=== PATIENT | male | born 1965 | race Caucasian/White ===

== ENCOUNTER 2021-04-24 14:41 | Outpatient (CLI) | payer OTHER ==
--- NOTE | 2021-04-24 16:27 | MRI Report ---
PROCEDURE: Shoulder RT W/O INDICATIONS: PAIN IN RIGHT SHOULDER TECHNIQUE: Noncontrast oblique coronal T2 fast spin echo with fat saturation, oblique sagittal T1 spin echo and T2 fast spin echo with fat saturation, axial T1 spin echo and T2 fast spin echo with fat saturation t hrough the shoulder. COMPARISON: None. FINDINGS: Image quality: Excellent. Rotator cuff: There is full-thickness tearing of the supraspinatus tendon and the anterior fibers of the infraspinatus tendon measuring 1.7 cm in anteroposterior dimension with proximal tendon retracti on measuring approximately 2.5 cm. There is tendinosis of the posterior infraspinatus tendon. The ter es minor tendon is intact. There is tendinosis and low-grade intrasubstance tearing of the subscapula ris tendon at the superior insertion. There is grade 2 fatty infiltration of the teres minor muscle, which may be related to chronic denervation changes. No mass is seen along the course of the axillary nerve. The remaining rotator cuff muscles are normal in bulk. Bones and bursae: No acute bone marrow contusion or fracture. Traction cystic changes and edema are seen at the posterosuperior humeral head and greater tuberosity near the rotator cuff tendon insertio ns. Small traction cystic changes are also seen at the lesser tuberosity. Moderate degenerative sandoval es are seen at the acromioclavicular joint with subchondral cystic changes. A subacromial/subdeltoid bursal effusion communicates with the glenohumeral joint space. Capsule and soft tissues: No displaced labral tear is seen. There is mild tendinosis of the intra-ar ticular portion of the biceps long head tendon. Partial effacement of the normal fat in the rotator i nterval is seen. There is no significant thickening of the inferior glenohumeral ligament. IMPRESSION: 1. Full-thickness tearing of the supraspinatus tendon and the anterior fibers of the infraspinatus t endon measuring 1.7 cm in anteroposterior dimension with proximal tendon retraction measuring 2.5 cm. Edema in the adjacent portion of the greater tuberosity may be reactive or related to traction. 2. Low-grade intrasubstance tearing of the subscapularis tendon at the superior insertion superimpos ed on chronic tendinosis. 3. Grade 2 fatty infiltration of the teres minor muscle is nonspecific, but may be related to chroni c denervation changes. No mass is seen along the course of the axillary nerve. 4. Mild tendinosis of the intra-articular biceps long head tendon. 5. Moderate acromioclavicular joint osteoarthrosis. Reviewed by: Rohit Pulido MD on 04/24/2021 4:26 PM PDT Approved by: Rohit Pulido MD on 04/24/2021 4:26 PM PDT Station ID: [id number]
== END 2021-04-24 14:42 | disposition home or self-care (01) ==
LOC: DI 14:41
PROVIDERS: ATTEND Student in an Organized Health Care Education/Training Program
DX: M75.121 Complete rotator cuff tear or rupture of right shoulder, not specified as traumatic (principal); M19.011 Primary osteoarthritis, right shoulder; M67.98 Unspecified disorder of synovium and tendon, other site

== ENCOUNTER 2021-11-09 17:03 | Outpatient (CLI) | payer OTHER ==
[2021-11-09 17:16] VITALS: BP 120/97
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
== END 2021-11-09 17:04 | disposition home or self-care (01) ==
LOC: SC 17:03
PROVIDERS: ATTEND Nurse Practitioner Family
DX: R06.83 Snoring (principal); R06.81 Apnea, not elsewhere classified; G47.8 Other sleep disorders; R41.89 Other symptoms and signs involving cognitive functions and awareness; G47.10 Hypersomnia, unspecified; E66.9 Obesity, unspecified; Z68.33 Body mass index [BMI] 33.0-33.9, adult
CPT/HCPCS: 99203; 99212

== ENCOUNTER 2021-12-10 19:33 | Outpatient (CLI) | payer OTHER | END 2021-12-10 19:34 | disposition home or self-care (01) | LOC: SC 19:33 | PROVIDERS: ATTEND Nurse Practitioner Family | DX: G47.33 Obstructive sleep apnea (adult) (pediatric) (principal); G47.61 Periodic limb movement disorder | CPT/HCPCS: 95810 ==

== ENCOUNTER 2022-01-10 15:28 | Outpatient (CLI) | payer OTHER ==
[2022-01-10 16:20] VITALS: BP 115/83
--- NOTE | 2022-01-10 16:20 | SLEEP CARE CONSULTATION ---
Information from patient questionnaire entered by Shlomo Mederos MA. I have reviewed and concur with the information entered by Shlomo Mederos MA. This document represents the service I personally performed and the decisions made by , Lucero Crenshaw ARNP. History of Present Illness Service Date and Time: 01/10/2022 1528 Current Adams Sleepiness Scale score: 9 Additional HPI information: SANTOS SCOTT returns for follow up and results of the recently performed polysomnography. I explained the pathophysiology behind obstructive sleep apnea. We then spent quite a bit of time discussing different treatment options. For mild obstructive sleep apnea, surgery and oral appliance are alternatives to nasal CPAP therapy but in moderate or severe cases, nasal CPAP is the most effective and reliable treatment. I reviewed the impact of weight changes on sleep apnea and strongly recommended losing weight. After some discussion, the patient opted to go with the nasal CPAP therapy. Nasal autoCPAP set at 4-15 cmH20 will be ordered with rationale explained. A manual titration study will be ordered if unable to find optimal pressure with office adjustments. I explained how CPAP machine works and what to expect when using the machine. Using CPAP every night in order to get used to it was emphasized. Patient advised to put CPAP mask on before getting into bed so as not to fall asleep without CPAP. To assist acclimation to CPAP use, it could also be used for a short time during day while reading or watching TV. The patient was instructed to call the CPAP supplier to discuss any mechanical problem that may occur. If the mask given is uncomfortable or is difficult to keep on through the night even with adjustment, contact the CPAP supplier as many will replace with another mask style if notified before 30 days. If snoring or perceives is not getting enough air or too much air from the machine, notify this office. [facility] patient education PAP tips reviewed and given to patient. Patient counseled not drink alcohol less than 4 hours before bedtime as it can increase snoring and apnea. Patient was cautioned about risks of drowsy driving until sleepiness symptoms resolve. Sleep Study - Results Type of Sleep Study: Polysomnography (F/U POLY, 12/10/21 [facility],) Prior sleep studies: No Polysomnography/Home Sleep Study results: IMPRESSION: The quality of the study is good. The patient had normal sleep efficiency. The sleep architecture was abnormal for sleep fragmentation and reduced amount of time spent in REM sleep. Respiratory monitoring showed severe obstructive sleep apnea-hypopnea (AHI = 48.1) associated with frequent arousals, oxyhemoglobin desaturation and moderate hypoxia (kenyatta oxygen saturation of 69%). Baseline oxygen saturation was normal. The respiratory events occurred independently of sleep stage and body position (supi ne AHI = 72.1; non-supine = 41.92). Snore was loud in intensity. There was mild periodic leg movement of sleep not contributing to the sleep fragmentation. Cardiac rhythm was normal sinus rhythm without significant arrhythmia. No abnormal behavior (parasomnia) observed during the night. Allergies and Home Medications Known drug allergies: No Drug allergies reviewed: Yes Home medication list reviewed: Yes (no changes) Review of Systems Review of systems same as previous: Yes (no changes) Physical Exam Vital signs obtained and entered by: ALISON DUBON Blood Pressure: 115/83 (RIGHT, PULSE 82, RESP 16, ) Cuff size: wrist Heart Rate: 84 O2 Saturation: 98 (PAPER MASK) Height: 5 ft 11 in Weight: 220 lb (UNIFORM AND BOOTS) Weight change since last visit: 19 lb loss Body Mass Index: 30.7 BMI Classification: Obese Impression and Plan 1. Obstructive Sleep Apnea-Hypopnea Syndrome, severe, with lowest oxygen saturation of 69%. Obviously this is the cause of the patients symptoms of unrefreshed sleep, and excessive daytime sleepiness. Positive pressure therapy could benefit hypertension and pre-diabetes. As mentioned above, the patient will be started on nasal autoCPAP therapy with pressure set at 4-15 cmH2O. A manual titration study will be completed if unable to find optimal treatment pressure with office adjustments. Compliance guidelines also reviewed. A copy of compliance guidelines will be given for reference at check out. Because the apnea is more severe supine, I instructed to avoid sleeping supine using pillow positioning until able to start CPAP use. 2. Hypoxemia, moderate, with a kenyatta oxygen saturation of 69% and 47.7 minutes spent under 90%. His baseline oxygen saturation was normal with an average oxygen saturation of 93%. 3. Periodic limb movement, mild, that did not fragment patients sleep. Periodic limb movement of sleep (PLMS) is characterized by episodes of repetitive limb movements that occur during sleep and usually involve the lower limbs. The etiology is unknown but can be associated with restless leg syndrome (RLS), neuropathy, a low serum ferritin level, spinal cord diseases, kidney disease, rheumatological disorders, narcolepsy, obstructive sleep apnea, and REM sleep behavior disorder. Patient was advised that no treatment is needed at this time. If symptoms increase, then further evaluation is indicated. * Nasal auto CPAP therapy, pressure at 4-15 cm H2O. * Attempt to lose weight. * Avoid alcohol consumption near bedtime. * Avoid supine sleep until using CPAP. * The patient is again cautioned about driving until sleepiness completely resolves. * Return one month after CPAP obtained. I will assess response to therapy and compliance at that time. Counseling Topics: Spare mask, Weight loss health impact Visit Type: In Office Other Participants: Spouse/Significant Other Time Spent with Patient (minutes): 34 Provider Statement: I spent 100% of the Face to Face Visit with the patient with greater than 50% spent counseling the patient and coordination of care.
== END 2022-01-10 15:29 | disposition home or self-care (01) ==
LOC: SC 15:28
PROVIDERS: ATTEND Nurse Practitioner Family
DX: G47.33 Obstructive sleep apnea (adult) (pediatric) (principal); R09.02 Hypoxemia; G47.61 Periodic limb movement disorder; E66.9 Obesity, unspecified; Z68.30 Body mass index [BMI] 30.0-30.9, adult
CPT/HCPCS: 99212; 99214

== ENCOUNTER 2022-03-21 15:16 | Outpatient (CLI) | payer OTHER ==
--- NOTE | 2022-03-21 18:49 | MRI Report ---
PROCEDURE: Lumbar Spine W/O INDICATIONS: SCIATIA TECHNIQUE: Noncontrast sagittal T1 spin echo and T2 fast echo, sagittal STIR, axial T1 and T2 fast spin echo thr ough the lumbar spine. In cases with scoliosis, additional coronal T2 fast spin echo may be performe d. COMPARISON: None. FINDINGS: Image quality: Excellent. Alignment and Curvature: There is normal bony alignment. Bone Marrow: Marrow is of normal overall signal. No acute vertebral body compression fractures. Spinal Cord: Conus medullaris terminates at the L1 level. Visualized cord demonstrates normal signa l and size. Paraspinous Soft Tissues: No paravertebral masses. T12-L1: Normal in appearance. L1-L2: Normal in appearance. L2-L3: Mild disc height loss and circumferential disc bulge with hypertrophic facet joints results in mild central stenosis. No foraminal stenosis. L3-L4: Mild circumferential disc bulge and hypertrophic facet joints with ligamentum flavum laxity results in mild to moderate central stenosis. No foraminal stenosis. L4-L5: Scaphoid is preserved. Cervical disc bulge with hypertrophic facet joints and ligamentum fla vum laxity combines to result in severe central stenosis. No foraminal stenosis. L5-S1: Disc height is preserved. Circumferential disc bulge and hypertrophic facet joints results i n mild to moderate central stenosis. Mild left and no right foraminal stenosis IMPRESSION: Multiple degenerative disc disease and arthropathy results in varying degrees of central and foramina l stenosis including severe central stenosis at L4-5 Reviewed by: Orestes Reed MD on 03/21/2022 5:48 PM LAN Approved by: Orestes Reed MD on 03/21/2022 5:48 PM LAN Station ID: [id number]
== END 2022-03-21 15:17 | disposition home or self-care (01) ==
LOC: DI 15:16
PROVIDERS: ATTEND Student in an Organized Health Care Education/Training Program
DX: M47.816 Spondylosis without myelopathy or radiculopathy, lumbar region (principal); M47.817 Spondylosis without myelopathy or radiculopathy, lumbosacral region; M48.061 Spinal stenosis, lumbar region without neurogenic claudication; M48.07 Spinal stenosis, lumbosacral region

== ENCOUNTER 2022-09-25 16:10 | Outpatient (CLI) | payer OTHER ==
--- NOTE | 2022-09-25 17:02 | SLEEP CARE CONSULTATION ---
Information from patient questionnaire entered by Liliana English. I have reviewed and concur with the information entered by Liliana English. This document represents the service I personally performed and the decisions made by me, Lucero Crenshaw ARNP. History of Present Illness Service Date and Time: 09/25/2022 1610 Previous diagnosis: Severe, Obstructive Sleep Apnea-Hypopnea Syndrome AHI: 48.1 Reason for follow up: first compliance (SET UP 01/22/22) Equipment type: CPAP (RESMED Airsense 11, s/u 12/2021) Equipment obtained from: Other ([facility]; getting supplies) Mask style: Nasal pillows Mask brand: Respironics ([employer]) Backup mask available: Yes (will keep old mask when replaced) Last cushion change: 1 week Prior sleep studies: No Type of Sleep Study: Polysomnography (F/U POLY, 12/10/21 [facility],) HPI additional information: SANTOS SCOTT was diagnosed to have severe, AHI 48.1, obstructive sleep apnea- hypopnea syndrome and returned today for CPAP therapy first compliance follow- up. Sleep Study - Results Type of Sleep Study: Polysomnography (F/U POLY, 12/10/21 [facility],) Prior sleep studies: No CPAP Compliance Data - Data Reviewed with Patient Average duration of nightly device use: 6 hours 5 mins Compliance rate %: 80 (05/22/2022-06/20/2022; 27/30 days used) Current pressure setting (cmH2O): 4-15 (median 8.3, avg 10.8, max 12.1) Average residual AHI: 8.5 (in last 30 days 2.65) Central apnea: 5.6 Obstructive apnea: 2.3 Hypopnea: 0.4 Average large leak: 0.0 Compliance data discussion: I was able to see on his tri on his phone that his usage in last 90 days is good with an avg AHI of 2.65. I cannot see pressures being used. Subjective Missed days of use due to: reports: travel Patient concerns: reports: mask leak noise. denies: aerophagia, mask discomfort, air blowing in eyes, condensation in mask/hose, nasal congestion, dry mouth, nose, throat, epistaxis Observed to snore while using device: No Current pressure setting perceived as: comfortable On therapy, patient: reports: other (he does not notice; his tells him that he is not as tired all the time and not as grumpy). denies: drowsiness while driving Initial Ermine Sleepiness Scale score: 9 Current Ermine Sleepiness Scale score: 8 (09/25/22) Physical Exam Vital signs obtained and entered by: LILIANA Tsang MA Blood Pressure: 112/70 (LEFT ARM) Cuff size: regular Heart Rate: 66 O2 Saturation: 98 Height: 5 ft 11 in Weight: 212 lb Body Mass Index: 29.5 BMI Classification: Overweight Impression and Plan 1. Obstructive Sleep Apnea-Hypopnea Syndrome, severe, with good treatment compliance and good apnea control. On CPAP therapy, the patient has better sleep quality and is more rested overall. Patient has significant improvement of their sleep apnea and are satisfied with current CPAP therapy. Patient did not know he was supposed to come back for compliance visit within the first 90 days. He has had some difficulty getting through on our phone system. His therapy report unfortunately stops in June 2022. We will check with his DME to see if there is a reason we cannot get a full report. I was able to see on his phone applications that his AHI is well-controlled in the last 30 days but I cannot see information on pressures being used. We will try to see if we can get a more current therapy report so that I may adjust his pressures appropriately. He is willing to put an SD card in his machine and bring that in if we are unable to get the report from the DME. Patient has also lost weight and feels this might be affecting the pressures being used. At this time the pressure is comfortable unless he wakes up for the restroom. He has to turn the machine off and back on to ramp down his pressures. Patient's apnea severity and rationale for treatment to reduce apnea, improve sleep quality and reduce cardiovascular and cerebrovascular events was reviewed. I also reviewed the benefit of consistent device use of CPAP for hypertension and pre-diabetes. 2. Obesity, unspecified. Currently patients BMI is 29.5. Patient has lost weight. Obesity increases the risk of apnea, CPAP pressure requirements and overall health risks especially cardiovascular and diabetes. Thus patient is advised to continue to try to lose weight. * Continue auto CPAP pressure at 4-15 cmH2O * Notify me if snoring with mask or feeling that the pressure is too much or too little * Attempt to lose weight * Call this office if any problems using CPAP * Return for follow up in 3 months, or sooner if concerns arise Counseling Topics: Spare mask, Weight loss health impact Visit Type: In Office Time Spent with Patient (minutes): 27 Provider Statement: I spent 100% of the Face to Face Visit with the patient with greater than 50% spent counseling the patient and coordination of care.
[2022-09-25 17:03] VITALS: BP 112/70
== END 2022-09-25 16:11 | disposition home or self-care (01) ==
LOC: SC 16:10
PROVIDERS: ATTEND Nurse Practitioner Family
DX: G47.33 Obstructive sleep apnea (adult) (pediatric) (principal); E66.3 Overweight; Z68.29 Body mass index [BMI] 29.0-29.9, adult
CPT/HCPCS: 99212; 99213

== ENCOUNTER 2022-12-25 16:09 | Outpatient (CLI) | payer OTHER ==
[2022-12-25 16:46] VITALS: BP 132/78
--- NOTE | 2022-12-25 16:46 | SLEEP CARE CONSULTATION ---
Information from patient questionnaire entered by Eileen English. I have reviewed and concur with the information entered by Eileen English. This document represents the service I personally performed and the decisions made by me, Lucero Crenshaw ARNP. History of Present Illness Service Date and Time: 12/25/2022 1609 Previous diagnosis: Severe, Obstructive Sleep Apnea-Hypopnea Syndrome AHI: 48.1 (in 2021) Reason for follow up: three month (F/U) Equipment type: CPAP (RESMED Airsense 11, s/u 12/2021) Equipment obtained from: Other ([facility]; getting supplies) Mask style: Nasal pillows Backup mask available: Yes (old mask) Prior sleep studies: No Type of Sleep Study: Polysomnography (F/U POLY, 12/10/21 [facility],) HPI additional information: [place] was diagnosed to have severe, AHI 48.1, obstructive sleep apnea- hypopnea syndrome and returned today for CPAP therapy three month follow-up. Sleep Study - Results Type of Sleep Study: Polysomnography (F/U POLY, 12/10/21 [facility],) Prior sleep studies: No CPAP Compliance Data - Data Reviewed with Patient Average duration of nightly device use: 5 HRS 31 MIN Compliance rate %: 74 (09/25/22-12/23/22; 85/90 days used) Current pressure setting (cmH2O): 8-11 Average residual AHI: 2.2 Central apnea: 0.6 Obstructive apnea: 1.2 Average large leak: 0.9 lpm Subjective Patient concerns: reports: mask leak noise. denies: aerophagia, mask discomfort, air blowing in eyes, condensation in mask/hose, nasal congestion, dry mouth, nose, throat, epistaxis Observed to snore while using device: No Current pressure setting perceived as: comfortable On therapy, patient: reports: other (moods have improved according to ). denies: drowsiness while driving Initial Ostrander Sleepiness Scale score: 9 Current Ostrander Sleepiness Scale score: 11 (12/25/2022) Allergies and Home Medications Known drug allergies: No Drug allergies reviewed: Yes Home medication list reviewed: Yes (no changes) Review of Systems Review of systems same as previous: Yes (no changes) Physical Exam Vital signs obtained and entered by: EILEEN Tsang MA Blood Pressure: 132/78 (LEFT ARM) Cuff size: regular Heart Rate: 72 O2 Saturation: 97 Height: 5 ft 11 in Weight: 209 lb 12.8 oz Body Mass Index: 29.2 BMI Classification: Overweight Impression and Plan 1. Obstructive Sleep Apnea-Hypopnea Syndrome, severe, with good treatment compliance and good apnea control. On CPAP therapy, the patient's has commented that his moods are better. He has not yet noted great improvement in sleep quality or overall restfulness. His Ostrander was 11/24 today. He is still getting a hissing noise from his mask. It is coming from the vents in the front of his mask at at the tubing elbow. I explained that this is supposed to happen and he voiced understanding. Patient is retiring from soon and will be moving out of state. We discussed what to do to establish care in his new area. Patient's apnea severity and rationale for treatment to reduce apnea, improve sleep quality and reduce cardiovascular and cerebrovascular events was reviewed. I also reviewed the benefit of consistent device use of CPAP for hypertension and pre-diabetes. 2. Overweight, unspecified. Currently patients BMI is 29.2. Obesity increases the risk of apnea, CPAP pressure requirements and overall health risks especially cardiovascular and diabetes. Thus patient is advised to lose weight. * Continue auto CPAP pressure at 8-11 cmH2O * Notify me if snoring with mask or feeling that the pressure is too much or too little * Attempt to lose weight * Call this office if any problems using CPAP * Return for follow up in 6 months, or sooner if concerns arise Counseling Topics: Spare mask, Weight loss health impact Visit Type: In Office Time Spent with Patient (minutes): 21 Provider Statement: I spent 100% of the Face to Face Visit with the patient with greater than 50% spent counseling the patient and coordination of care.
== END 2022-12-25 16:10 | disposition home or self-care (01) ==
LOC: SC 16:09
PROVIDERS: ATTEND Nurse Practitioner Family
DX: G47.33 Obstructive sleep apnea (adult) (pediatric) (principal); E66.3 Overweight; Z68.29 Body mass index [BMI] 29.0-29.9, adult
CPT/HCPCS: 99212; 99213

== ENCOUNTER 2023-03-31 16:57 | Emergency (ER) | payer OTHER ==
[2023-03-31 17:11] VITALS: BP 150/77
[2023-03-31] MEDS ORDERED: BACITRACIN ZINC OINT 1 PACKET TOP STA (17:14)
--- NOTE | 2023-03-31 17:16 | ED Physician Documentation ---
History of Present Illness - Stated complaint Stated Complaint: HEAD LAC - Chief complaint Chief Complaint: Trauma Hd/Nk - Additonal information Additional information: Right scalp laceration sustained when a chair fell from overhead in the garage onto the scalp. No anticoagulation. No loss of consciousness. Previous history of extensive right scalp avulsion injury many years ago resulting in a large defect and scar on the right side. Tetanus is up-to-date. Review of Systems Skin: reports: Laceration (s) PD PAST MEDICAL HISTORY - Present Medications Home Medications: Ambulatory Orders Medication Instructions Recorded Confirmed lisinopriL [Zestril] See Rx Instructions .ROUTE .COMPLEX 09/25/22 12/25/22 - Allergies Allergies/Adverse Reactions: Allergies Allergy/AdvReac Type Severity Reaction Status Date / Time No Known Drug Allergies Allergy Verified 03/31/23 16:59 PD ED PE EXPANDED - HEENT HEENT: No: Atraumatic (L-shaped laceration right parietal scalp measuring 2 cm in total length.) Results - Vitals Vitals: Vital Signs - 24 hr 03/31/23 16:59 Temperature 36.5 C Heart Rate 83 Respiratory 16 Rate Blood Pressure 150/77 H O2 Saturation 97 Oxygen O2 Source Room air Procedures - Laceration (location) right parietal scalp Length in cm: 2 Wound type: Linear, Curved ("L" shaped) Wound preparation: Irrigated copiously NS Skin layer closure: Angel (3 placed) Other: Patient tolerated well, Tetanus UTD PD Medical Decision Making - ED course Complexity details: d/w patient ED course: Superficial right parietal scalp laceration sustained when a chair struck his head from above. No anticoagulation or loss of consciousness. Normal mentation nonfocal. We will defer CT imaging given low risk. Wound was easily closed with 3 angel. Usual routine wound care and emergent return precautions discussed. Departure - Departure Disposition: 01 Home, Self Care Clinical Impression: Laceration of scalp Qualifiers: Encounter type: initial encounter Qualified Code(s): S01.01XA - Laceration without foreign body of scalp, initial encounter Condition: Stable Record reviewed to determine appropriate education?: Yes Comments: Alex we closed the laceration on your scalp with 3 angel. They should be removed in 7 to 10 days. In general he can shower normally. Apply thin layer of antibiotic ointment such as triple antibiotic or bacitracin to the wound. I in general I expect this to heal well. If you have any concerns of infection return immediately to the ER. Return sooner if you develop any sudden severe headache, have uncontrolled vomiting, slurred speech, facial droop or sudden weakness in your arms or legs.
== END 2023-03-31 17:38 | disposition home or self-care (01) ==
LOC: ED 16:57
DX: S01.01XA Laceration without foreign body of scalp, initial encounter (principal); W20.8XXA Other cause of strike by thrown, projected or falling object, initial encounter; Y92.008 Other place in unspecified non-institutional (private) residence as the place of occurrence of the external cause
CPT/HCPCS: 12001; 99281; A9270